=== PATIENT | male | born 1945 | race Two or more races ===

== ENCOUNTER 2025-02-08 03:09 | Inpatient (IN) | payer OTHER ==
[~2025-02-08] VITALS: Ht 177.8 cm; Wt 96.3 kg
--- NOTE | 2025-02-08 03:32 | ED.PDOC ---
History of Present Illness HPI Comments 80 y/o M is BIBA for allergic reaction, characterized by generalized facial swelling, shortness of breath, and wheezing. Symptoms are reported to have started around 0200, this morning. Patient endorses on no prior history of having any known allergen in the past and trying a "new" protein bar at around [id number], last night. Denies any chest pain, cough, throat irritation, numbness, tingling, or further associated symptoms. En route, patient received 25mg IV Benadryl and 0.3mg Epinephrine, with moderate improvement. 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, Treatment Past Medical History PAST MEDICAL HISTORY: Cancer (prostate cancer ), HTN Surgical History: CABG All Other Systems: Reviewed and Negative (Comprehensive systems review obtained and negative except for what is stated in the HPI.) Physical Exam General Appearance: No Apparent Distress, Normal HEENT: Pharynx Normal, TMs Normal, Other (edema to the lower lip and bilateral periorbital area; tongue does not appear to be swollen; otherwise, normal HEENT inspection ) Neck: Full Range of Motion, Non-Tender, Normal, Normal Inspection Respiratory: Chest Non-Tender, Lungs Clear, No Accessory Muscle Use, No Respiratory Distress, Normal Breath Sounds Cardiovascular: No Edema, No JVD, No Murmur, No Gallop, Normal Peripheral Pulses, Regular Rate/Rhythm Breast Exam: Deferred Gastrointestinal: No Organomegaly, Non Tender, No Pulsatile Mass, Normal Bowel Sounds, Soft Genitalia: Deferred Pelvic: Deferred Rectal: Deferred Extremities: No calf tenderness, Normal capillary refill, Normal inspection, Normal range of motion, Non-tender, No pedal edema Musculoskeletal : Apperance: Normal Neurologic: Alert, fishing tool supervisor II-XII nml as Tested, No Motor Deficits, Normal Affect, Normal Mood, No Sensory Deficits Cerebellar Function: Normal Reflexes: Normal Skin: Dry, Normal Color, Warm Lymphatic: No Adenopathy Was a procedure done? Was a procedure done?: No Differential Dx Considerations may include: anaphylaxis, angioedema, exposure to unknown new allergen, among others X-Ray, Labs, Meds, VS Vital Signs Date Time Temp Pulse Resp B/P (MAP) Pulse Ox O2 Delivery O2 Flow Rate FiO2 02/08/25 04:27 60 02/08/25 03:45 65 16 96 Room Air* 0 21 02/08/25 03:45 98.0 64 16 130/78 (95) 95 98.0 02/08/25 03:12 16 97 Nasal Cannula* 3 32 02/08/25 03:12 98.4 77 16 168/75 (106) 97 98.4 Lab Test 02/08/25 04:07 Range/Units White Blood Count 5.5 4.4-10.8 10^3/uL Red Blood Count 5.49 4.5-5.90 10^6/uL Hemoglobin 15.7 13.5-17.5 g/dL Hematocrit 46.7 41.0-53.0 % Mean Corpuscular Volume 85.1 80.0-100.0 fL Mean Corpuscular Hemoglobin 28.6 28.0-32.0 pg Mean Corpuscular Hemoglobin Concent 33.6 32.0-36.0 g/dL Red Cell Distribution Width 16.2 H 11.8-14.3 % Platelet Count 130 L 140-450 10^3/uL Mean Platelet Volume 7.7 6.9-10.8 fL Neutrophils (%) (Auto) 75.5 37.0-80.0 % Lymphocytes (%) (Auto) 16.4 10.0-50.0 % Monocytes (%) (Auto) 6.2 0.0-12.0 % Eosinophils (%) (Auto) 1.4 0.0-7.0 % Basophils (%) (Auto) 0.5 0.0-2.0 % Neutrophils # (Auto) 4.2 1.6-8.6 10 ^3/uL Lymphocytes # (Auto) 0.9 0.4-5.4 10 ^3/uL Monocytes # (Auto) 0.3 0-1.3 10 ^3/uL Eosinophils # (Auto) 0.1 0-0.8 10 ^3/uL Basophils # (Auto) 0 0-0.2 10 ^3/uL Nucleated Red Blood Cells 0.1 % Sodium Level 136 136-145 mmol/L Potassium Level 3.4 L 3.5-5.1 mmol/L Chloride Level 101 98-107 mmol/L Carbon Dioxide Level 27 20-31 mmol/L Anion Gap 8 5-15 Blood Urea Nitrogen 24 H 9-23 mg/dL Creatinine 1.44 H 0.700-1.30 mg/dL Glomerular Filtration Rate Calc 49 >90 mL/min BUN/Creatinine Ratio 16.7 10.0-20.0 Serum Glucose 206 H 74-106 mg/dL Calcium Level 9.4 8.7-10.4 mg/dL Total Bilirubin 0.7 0.2-1.0 mg/dL Aspartate Amino Transferase (AST) 14 13-40 U/L Alanine Aminotransferase (ALT) 15 7-40 U/L Alkaline Phosphatase 58 46-116 U/L Troponin I High Sensitivity 9 </=54 ng/L Total Protein 6.3 5.7-8.2 g/dL Albumin 4.0 3.2-4.8 g/dL Current Medications Medications (Trade) Dose Ordered Sig/Shai Route Start Time Stop Time Status Last Admin Diphenhydramine HCl (Benadryl Injection) 25 mg ONCE ONCE IV 02/08/25 04:15 02/08/25 04:16 DC 02/08/25 04:14 Famotidine (Pepcid Injection) 20 mg ONCE ONCE IV 02/08/25 04:15 02/08/25 04:16 DC 02/08/25 04:14 Methylprednisolone Sodium Succinate (Solu Medrol) 40 mg ONCE ONCE IV 02/08/25 04:15 02/08/25 04:16 DC 02/08/25 04:14 Time of 1ST Reevaluation: 03:48 Reevaluation 1ST: Unchanged Patient Education/Counseling: Diagnosis, Treatment Family Education/Counseling: No Family Present Departure 1 Departure Time of Disposition: 04:59 Impression: Primary Impression: Angioedema Additional Impressions: Allergic reaction Acute renal injury Type 2 diabetes mellitus with hyperglycemia Disposition: 09 ADMITTED INPATIENT Admit to: Tele Condition: Guarded Discharged With: Self Critical Care Note Critical Care Time?: Yes (35 min-critical care time only) Critical care comment: Total critical care time: Approximately 36 minutes Due to a high probability of clinically significant, life threatening deterioration, the patient required my highest level of preparedness to intervene emergently and I personally spent this critical care time directly and personally managing the patient. This critical care time included obtaining a history; examining the patient; pulse oximetry; ordering and review of studies; arranging urgent treatment with development of a management plan; evaluation of patient's response to treatment; frequent reassessment; and, discussions with other providers. This critical care time was performed to assess and manage the high probability of imminent, life-threatening deterioration that could result in multi-organ failure. It was exclusive of separately billable procedures and treating other patients. Stability Stability form required: No Heart Score Heart Score: Heart Score Response (Comments) Value History N/A 0 EKG N/A 0 Age N/A 0 Risk Factors N/A 0 Troponin N/A 0 Total 0 I personally scribed for MADYSON CALDERA MD ([email or web address]) on 02/08/25 at 03:32. Electronically submitted by Timothy Brunner [email or web address]). MADYSON CALDERA MD February 08, 2025 03:32
[2025-02-08 03:45] VITALS: PULSE 65; RESP 16; O2SAT 96
[2025-02-08] MEDS: methylPREDNISolone SOD SUCC 40 MG/ML VL IV ONE (04:14)
[2025-02-08] MEDS: FAMOTIDINE (10MG/ML) 2ML VL IV ONE (04:14)
[2025-02-08] MEDS: diphenhdrAMINE HCL 50 MG/1 ML VL IV ONE (04:14)
[2025-02-08 04:28] LABS: Basophils # (auto) 0 10 ^3/uL (0-0.2); Basophils % (auto) 0.5 % (0.0-2.0); Eosinophils # (auto) 0.1 10 ^3/uL (0-0.8); Eosinophils % (auto) 1.4 % (0.0-7.0); Hematocrit 46.7 % (41.0-53.0); Hemoglobin 15.7 g/dL (13.5-17.5); Lymphocytes # (auto) 0.9 10 ^3/uL (0.4-5.4); Lymphocytes % (auto) 16.4 % (10.0-50.0); Mean Corpuscular Hemoglobin 28.6 pg (28.0-32.0); Mean Corpuscular Hgb Conc. 33.6 g/dL (32.0-36.0); Mean Corpuscular Volume 85.1 fL (80.0-100.0); Monocytes # (auto) 0.3 10 ^3/uL (0-1.3); Monocytes % (auto) 6.2 % (0.0-12.0); Neutrophils # (auto) 4.2 10 ^3/uL (1.6-8.6); Neutrophils % (auto) 75.5 % (37.0-80.0); Nucleated Red Blood Cells % 0.1 %; Platelet Count (auto) 130 10^3/uL (140-450); Red Blood Cells 5.49 10^6/uL (4.5-5.90); Red Cell Distribution Width 16.2 % (11.8-14.3); White Blood Cell 5.5 10^3/uL (4.4-10.8)
[2025-02-08 04:40] LABS: Alanine Aminotransferase 15 U/L (7-40); Alkaline Phosphatase 58 U/L (46-116); Anion Gap 8 (5-15); Aspartate Aminotransferase 14 U/L (13-40); BUN/Creatinine Ratio 16.7 (10.0-20.0); Calcium 9.4 mg/dL (8.7-10.4); Carbon Dioxide 27 mmol/L (20-31); Chloride 101 mmol/L (98-107); Sodium 136 mmol/L (136-145); Total Protein 6.3 g/dL (5.7-8.2)
[2025-02-08 04:41] LABS: Bilirubin, Total 0.7 mg/dL (0.2-1.0)
[2025-02-08 04:42] LABS: Blood Urea Nitrogen 24 mg/dL (9-23); Glucose 206 mg/dL (74-106); Potassium 3.4 mmol/L (3.5-5.1)
[2025-02-08] MEDS: SODIUM CHLORIDE 0.9% 500 ML IV ONE (05:13)
--- NOTE | 2025-02-08 07:04 | ECG ---
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
[2025-02-08] MEDS ORDERED: LISINOPRIL 20 MG TAB PO SCH (07:30)
[2025-02-08] MEDS: amLODIPine BESYLATE 5 MG TAB PO ONE (08:10)
[2025-02-08] MEDS ORDERED: MORPHINE SULFATE INJ 2 MG/ml SYRG IV PRN (10:30)
[2025-02-08] MEDS ORDERED: NITROGLYCERIN 0.4 MG SL TAB SL PRN (10:30)
[2025-02-08] MEDS ORDERED: DOCUSATE SOD 100 MG CAP PO PRN (10:30)
[2025-02-08] MEDS ORDERED: HYDROcodone-ACET 5/325MG TAB PO PRN (10:30)
[2025-02-08] MEDS ORDERED: ACETAMINOPHEN 325 MG TAB PO PRN (10:30)
[2025-02-08] MEDS ORDERED: ONDANSETRON HCL 4 MG/2 ML VIAL IV PRN (10:30)
[2025-02-08] MEDS ORDERED: GLIP5TAB21 PO (10:33)
[2025-02-08] MEDS ORDERED: GLIP10TA9 PO (10:33)
[2025-02-08] MEDS ORDERED: METF-771 PO (10:33)
[2025-02-08] MEDS ORDERED: ROSU20TA56 PO (10:33)
[2025-02-08] MEDS ORDERED: EMPA1TAB PO (10:33)
[2025-02-08] MEDS ORDERED: ASPI81CH49 PO (10:33)
[2025-02-08] MEDS ORDERED: TAMS0.4C39 PO (10:33)
[2025-02-08] MEDS ORDERED: LISI20TA56 PO (10:33)
[2025-02-08] MEDS ORDERED: [UNRECOGNIZED DRUG - CODE] SC (10:37)
[2025-02-08] MEDS ORDERED: DEXTROSE (50%) 50ML SYRG IV PRN (10:45)
--- NOTE | 2025-02-08 10:55 | DVHHP2 ---
History of Present Illness Reason for Visit: Allergic response History of Present Illness Santiago Franco is an 80-year-old male with past medical history of hypertension, diabetes, hyperlipidemia, coronary artery disease, and prostate cancer, came to the hospital for allergic response. [facility], and he states he ate a protein bar around [id number] last night and woke up around 0200 with his face and arm itching. He noticed that his throat was itching and he was having difficulty breathing. He then went to the bathroom and saw that his face and tongue was swollen. On arrival to ER he was given IV Benadryl, IV steroids, and IV Pepcid. His swelling decreased and his breathing improved, but the swelling did not completely go away. Cardiovascular: CAD, HTN, hyperipidemia Heme/Onc: Cancer (prostate) Endocrine: Diabetes Past Surgical History: CABG (December 2023), Hernia Repair, Other (Prostate, right hip and pelvis surgery, pituitary surgery 1999, ) Review of Systems Constitutional: No: Fever, Chills, Sweats, Weakness, Malaise, Other Eyes: No: Pain, Vision change, Conjunctivae inflammation, Eyelid inflammation, Other, Redness ENT: Mouth swelling, Throat swelling, Other (tongue and facital swelling); No: Ear pain, Ear discharge, Nose pain, Nose discharge, Nose congestion, Mouth pain, Throat pain Respiratory: No: Cough, Dry, Shortness of breath, SOB with excertion, Wheezing, Hemoptysis, Pleuritic Pain, Sputum, Wheezing, Other Cardiovascular: No: Chest Pain, Palpitations, Orthopnea, Paroxysmal Noc. Dyspnea, Edema, Lt Headedness, Other Gastrointestinal: No: Nausea, Vomiting, Abdominal Pain, Diarrhea, Constipation, Melena, Hematochezia, Other Genitourinary: No Dysuria, No Frequency, No Incontinence, No Hematuria, No Retention, No Other Musculoskeletal: No: other, neck pain, shoulder pain, arm pain, back pain, hand pain, leg pain, foot pain Skin: No: Rash, Lesions, Jaundice, Bruising, Other Neurological: No: Weakness, Numbness, Incoordination, Change in speech, Confusion, Seizures, Other Allergies: Coded Allergies: JENNIFER Inhibitors (Verified Allergy, Severe, 02/08/25) ANGIOEDEMA Medications Current Medications Medications Dose Ordered Sig/Shai Route Start Time Stop Time Status Last Admin Dose Admin Acetaminophen/ Hydrocodone Bitart 1 tab Q4HP PRN PO 02/08/25 10:30 UNV Ondansetron HCl 4 mg Q4HP PRN IV 02/08/25 10:30 UNV Docusate Sodium 100 mg BIDPRN PRN PO 02/08/25 10:30 UNV Acetaminophen 650 mg Q6HP PRN PO 02/08/25 10:30 UNV Nitroglycerin 0.4 mg Q5MINP PRN SL 02/08/25 10:30 UNV Morphine Sulfate 2 mg Q30M PRN IV 02/08/25 10:30 UNV Methylprednisolone Sodium Succinate 40 mg BID IV 02/08/25 22:00 UNV Famotidine 20 mg Q12HR IV 02/08/25 22:00 UNV Diphenhydramine HCl 25 mg Q4HP PRN IV 02/08/25 10:30 UNV Diagnostic Test (Pha) 1 strip ACHS 02/08/25 11:30 UNV Insulin Human Regular HS SC 02/08/25 22:00 UNV Insulin Human Regular AC SC 02/08/25 11:30 UNV Dextrose 50 ml UD PRN IV 02/08/25 10:45 UNV Empaglifozin 10 mg DAILY PO 02/09/25 10:00 UNV Glipizide 5 mg DAILY PO 02/09/25 10:00 UNV Tamsulosin HCl 0.4 mg DAILY PO 02/09/25 10:00 UNV Patient Own Medication 81 mg DAILY PO 02/09/25 10:00 UNV Patient Own Medication 1 tab HS PO 02/08/25 22:00 UNV Patient Own Medication 20 mg HS PO 02/08/25 22:00 UNV Patient Own Medication 20 mg DAILY SC 02/09/25 10:00 UNV Exam Vital Signs Vital Signs Date Time Temp Pulse Resp B/P (MAP) Pulse Ox O2 Delivery O2 Flow Rate FiO2 02/08/25 08:10 142/76 02/08/25 07:48 97.3 70 16 93 97.3 02/08/25 07:48 Room Air* 0 21 General Appearance: Alert, Oriented X3, Cooperative, mild distress HEENT: Atraumatic, PERRLA Respiratory: Clear to auscultation, Normal air movement Cardiovascular: Regular rate, Normal S1, Normal S2 Abdominal: Normal bowel sounds, Soft, No tenderness, No hepatospenomegaly Extremities: No clubbing, No cyanosis, No edema, Normal pulses, No tenderness/swelling Skin: No rashes, No breakdown, No significant lesion Neuro: Normal gait, Normal speech, Strength at 5/5 X4 ext Psych/Mental Status: Mental status NL, Mood NL Labs/Xrays Labs Test 02/08/25 05:14 02/08/25 04:07 Range/Units Troponin I High Sensitivity 8 </=54 ng/L White Blood Count 5.5 4.4-10.8 10^3/uL Red Blood Count 5.49 4.5-5.90 10^6/uL Hemoglobin 15.7 13.5-17.5 g/dL Hematocrit 46.7 41.0-53.0 % Mean Corpuscular Volume 85.1 80.0-100.0 fL Mean Corpuscular Hemoglobin 28.6 28.0-32.0 pg Mean Corpuscular Hemoglobin Concent 33.6 32.0-36.0 g/dL Red Cell Distribution Width 16.2 H 11.8-14.3 % Platelet Count 130 L 140-450 10^3/uL Mean Platelet Volume 7.7 6.9-10.8 fL Neutrophils (%) (Auto) 75.5 37.0-80.0 % Lymphocytes (%) (Auto) 16.4 10.0-50.0 % Monocytes (%) (Auto) 6.2 0.0-12.0 % Eosinophils (%) (Auto) 1.4 0.0-7.0 % Basophils (%) (Auto) 0.5 0.0-2.0 % Neutrophils # (Auto) 4.2 1.6-8.6 10 ^3/uL Lymphocytes # (Auto) 0.9 0.4-5.4 10 ^3/uL Monocytes # (Auto) 0.3 0-1.3 10 ^3/uL Eosinophils # (Auto) 0.1 0-0.8 10 ^3/uL Basophils # (Auto) 0 0-0.2 10 ^3/uL Nucleated Red Blood Cells 0.1 % Sodium Level 136 136-145 mmol/L Potassium Level 3.4 L 3.5-5.1 mmol/L Chloride Level 101 98-107 mmol/L Carbon Dioxide Level 27 20-31 mmol/L Anion Gap 8 5-15 Blood Urea Nitrogen 24 H 9-23 mg/dL Creatinine 1.44 H 0.700-1.30 mg/dL Glomerular Filtration Rate Calc 49 >90 mL/min BUN/Creatinine Ratio 16.7 10.0-20.0 Serum Glucose 206 H 74-106 mg/dL Calcium Level 9.4 8.7-10.4 mg/dL Total Bilirubin 0.7 0.2-1.0 mg/dL Aspartate Amino Transferase (AST) 14 13-40 U/L Alanine Aminotransferase (ALT) 15 7-40 U/L Alkaline Phosphatase 58 46-116 U/L Total Protein 6.3 5.7-8.2 g/dL Albumin 4.0 3.2-4.8 g/dL Assessment/Plan Assessment/Plan Assessment: Angioedema, Hyperglycemia, Hypokalemia, Hyperlipidemia, Hypertension, Diabetes, Plan: Admit to Tele, IV hydration, IV steroids, IV Pepcid, PRN Benadryl, Manage/Monitor electrolytes, Accu checks Q AC&HS with sliding scale, Home medications reconciled, Plan discussed with: Patient, Spouse My Orders Orders - AMBER SORENSON Procedure Category Date Status Time Admit ADMIT 02/08/25 Transmitted 10:24 Code Status CODE 02/08/25 Transmitted 10:24 Hydrocodone-Acet PHA 02/08/25 Logged 5/325mg Tab (Union 10:30 Ondansetron Hcl PHA 02/08/25 Logged (Zofran) 10:30 Docusate Sodium PHA 02/08/25 Logged Capsule (Colace 10:30 Complete Blood Count LAB 02/09/25 Verified 04:00 Comprehensive LAB 02/09/25 Verified Metabolic Panel 04:00 Cardiac DIET 02/08/25 Transmitted Diet-2gna,Lofat,Lochol Lunch Condition: Serious CHECO 02/08/25 In Process 10:24 Acetaminophen Tablet PHA 02/08/25 Logged (Tylenol Tablet) 10:30 Nitroglycerin PHA 02/08/25 Logged Sublingual (Ntrostat 10:30 Morphine Sulfate PHA 02/08/25 Logged Injection 10:30 Stat Ekg For Chest CHECO 02/08/25 In Process Pain 10:24 Notify Of Changes CHECO 02/08/25 In Process From Base 10:24 Correctional Corporal For CHECO 02/08/25 In Process 24 Hours 10:24 Emergency Dysrhythmia CHECO 02/08/25 In Process Protocol 10:24 Rhythm Strips Once [facility] 02/08/25 In Process Every Shift 10:24 Oxygen By Nasal RT 02/08/25 Transmitted Cannula 10:24 Methylprednisolone PHA 02/08/25 Logged Sod Succ (Solu Medrol 22:00 Famotidine Injection PHA 02/08/25 Logged (Pepcid Injection) 22:00 Diphenhdramine PHA 02/08/25 Logged Injection (Benadryl 10:30 Glucose Blood PHA 02/08/25 Logged (Accu-Chek Comfort 11:30 Insulin R (Human) PHA 02/08/25 Logged (Insulin R) 22:00 Insulin R (Human) PHA 02/08/25 Logged (Insulin R) 11:30 Dextrose 50% Syringe PHA 02/08/25 Logged 10:45 Empagliflozin PHA 02/09/25 Logged (Jardiance) 10:00 Glipizide Tablet PHA 02/09/25 Logged (Glucotrol Tablet) 10:00 Tamsulosin PHA 02/09/25 Logged Hydrochloride (Flomax) 10:00 (Nf) Aspirin PHA 02/09/25 Logged 10:00 (Nf) Glipizide PHA 02/08/25 Logged 22:00 (Nf) Rosuvastatin PHA 02/08/25 Logged Calcium 22:00 (Nf) Pegvisomant PHA 02/09/25 Logged (Somavert) 10:00 Date of Service: February 08, 2025 Billing Provider: AMBER SORENSON Common Visit Codes: [id number] INP/OBS CARE (MOD) AMBER SORENSON February 08, 2025 10:55
[2025-02-08] MEDS: SODIUM CHLORIDE 0.9% 1,000 ML IV ONE (11:35)
[2025-02-08] MEDS: InsuLIN REG 1unit/0.01ml Soln (100units/ml) SC SCH ×2 (11:50→22:47)
[2025-02-08] MEDS: ACCU-CHEK COMFORT CURVE STRIP VI SCH (11:50)
[2025-02-08 16:24] VITALS: BP 129/72; PULSE 85; RESP 17; TEMP 97.7; O2SAT 94
[2025-02-08] MEDS: TAMSULOSIN HYDROCHLORIDE 0.4 MG CAP PO SCH (17:28)
[2025-02-08] MEDS: POTASSIUM CHL 20 Meq TABLET PO ONE (19:11)
[2025-02-08 21:00] VITALS: BP 130/69; PULSE 68; RESP 19; TEMP 98.2; O2SAT 95
[2025-02-08 21:20] VITALS: RESP 16; O2SAT 97
[2025-02-08] MEDS ORDERED: glipiZIDE 5 MG TAB PO SCH (22:00)
[2025-02-08] MEDS: FAMOTIDINE (10MG/ML) 2ML VL IV SCH (22:47)
[2025-02-08] MEDS: ATORVASTATIN 20 MG TAB PO SCH (22:47)
[2025-02-08] MEDS: methylPREDNISolone SOD SUCC 40 MG/ML VL IV SCH (22:47)
[2025-02-09 05:00] VITALS: BP 146/81; PULSE 80; RESP 18; TEMP 98.3; O2SAT 97
[2025-02-09 06:48] LABS: Basophils # (auto) 0 10 ^3/uL (0-0.2); Eosinophils # (auto) 0 10 ^3/uL (0-0.8); Lymphocytes # (auto) 0.5 10 ^3/uL (0.4-5.4); Monocytes # (auto) 0.1 10 ^3/uL (0-1.3); Nucleated Red Blood Cells % 0.1 %
[2025-02-09 06:55] LABS: Basophils % (auto) 0.2 % (0.0-2.0); Hematocrit 50.5 % (41.0-53.0); Hemoglobin 17.2 g/dL (13.5-17.5); Lymphocytes % (auto) 8.3 % (10.0-50.0); Mean Corpuscular Hemoglobin 28.5 pg (28.0-32.0); Mean Corpuscular Volume 83.9 fL (80.0-100.0); Monocytes % (auto) 1.9 % (0.0-12.0); Neutrophils # (auto) 5.2 10 ^3/uL (1.6-8.6); Neutrophils % (auto) 89.6 % (37.0-80.0); Platelet Count (auto) 140 10^3/uL (140-450); Red Blood Cells 6.02 10^6/uL (4.5-5.90); Red Cell Distribution Width 15.6 % (11.8-14.3); White Blood Cell 5.8 10^3/uL (4.4-10.8)
[2025-02-09 07:09] LABS: Alanine Aminotransferase 13 U/L (7-40); Alkaline Phosphatase 56 U/L (46-116); Anion Gap 10 (5-15); BUN/Creatinine Ratio 19.5 (10.0-20.0); Blood Urea Nitrogen 23 mg/dL (9-23); Calcium 9.5 mg/dL (8.7-10.4); Carbon Dioxide 24 mmol/L (20-31); Chloride 103 mmol/L (98-107); Sodium 137 mmol/L (136-145)
[2025-02-09 07:10] LABS: Total Protein 6.8 g/dL (5.7-8.2)
[2025-02-09 07:11] LABS: Albumin 4.2 g/dL (3.2-4.8); Bilirubin, Total 0.8 mg/dL (0.2-1.0)
[2025-02-09 07:12] LABS: Aspartate Aminotransferase 8 U/L (13-40); Glucose 265 mg/dL (74-106)
[2025-02-09 08:00] VITALS: PULSE 71; RESP 18; O2SAT 96
[2025-02-09] MEDS: diphenhdrAMINE HCL 50 MG/1 ML VL IV PRN (08:02)
[2025-02-09 09:07] VITALS: BP 140/68; PULSE 77; RESP 18; TEMP 97.6; O2SAT 92
[2025-02-09] MEDS: EMPAGLIFLOZIN 10 MG TAB PO SCH (09:52)
[2025-02-09] MEDS: PEGVISOMANT SC SCH (09:53)
[2025-02-09] MEDS ORDERED: glipiZIDE 5 MG TAB PO SCH (10:00)
[2025-02-09] MEDS: ASPirin 81 mg TAB PO SCH (12:16)
[2025-02-09 13:00] VITALS: BP 137/83; PULSE 70; RESP 19; TEMP 97.9; O2SAT 94
[2025-02-09] MEDS ORDERED: diphenhdrAMINE HCL 50 MG/1 ML VL IV ONE (14:30)
--- NOTE | 2025-02-09 14:36 | DVHDS2 ---
Discharge Summary Date of Admission February 08, 2025 at 10:24 Date of Discharge: February 09, 2025 Labs/Diagnostic Data: Laboratory Results Test 02/09/25 11:42 02/09/25 06:19 02/08/25 05:14 POC Glucose 330 mg/dl (70-106) White Blood Count 5.8 10^3/uL (4.4-10.8) Red Blood Count 6.02 10^6/uL (4.5-5.90) Hemoglobin 17.2 g/dL (13.5-17.5) Hematocrit 50.5 % (41.0-53.0) Mean Corpuscular Volume 83.9 fL (80.0-100.0) Mean Corpuscular Hemoglobin 28.5 pg (28.0-32.0) Mean Corpuscular Hemoglobin Concent 34.0 g/dL (32.0-36.0) Red Cell Distribution Width 15.6 % (11.8-14.3) Platelet Count 140 10^3/uL (140-450) Mean Platelet Volume 8.0 fL (6.9-10.8) Neutrophils (%) (Auto) 89.6 % (37.0-80.0) Lymphocytes (%) (Auto) 8.3 % (10.0-50.0) Monocytes (%) (Auto) 1.9 % (0.0-12.0) Eosinophils (%) (Auto) 0.0 % (0.0-7.0) Basophils (%) (Auto) 0.2 % (0.0-2.0) Neutrophils # (Auto) 5.2 10 ^3/uL (1.6-8.6) Lymphocytes # (Auto) 0.5 10 ^3/uL (0.4-5.4) Monocytes # (Auto) 0.1 10 ^3/uL (0-1.3) Eosinophils # (Auto) 0 10 ^3/uL (0-0.8) Basophils # (Auto) 0 10 ^3/uL (0-0.2) Nucleated Red Blood Cells 0.1 % Sodium Level 137 mmol/L (136-145) Potassium Level 4.0 mmol/L (3.5-5.1) Chloride Level 103 mmol/L (98-107) Carbon Dioxide Level 24 mmol/L (20-31) Anion Gap 10 (5-15) Blood Urea Nitrogen 23 mg/dL (9-23) Creatinine 1.18 mg/dL (0.700-1.30) Glomerular Filtration Rate Calc 62 mL/min (>90) BUN/Creatinine Ratio 19.5 (10.0-20.0) Serum Glucose 265 mg/dL (74-106) Calcium Level 9.5 mg/dL (8.7-10.4) Total Bilirubin 0.8 mg/dL (0.2-1.0) Aspartate Amino Transferase (AST) 8 U/L (13-40) Alanine Aminotransferase (ALT) 13 U/L (7-40) Alkaline Phosphatase 56 U/L (46-116) Total Protein 6.8 g/dL (5.7-8.2) Albumin 4.2 g/dL (3.2-4.8) Troponin I High Sensitivity 8 ng/L (</=54) Other Laboratory Tests 02/09/25 06:19 Brief Hx & Hospital Course: Final diagnoses: Angioedema due to Steve inhibitor lisinopril Hyperglycemia Hypokalemia Hyperlipidemia Hypertension Diabetes 80 year old male has been taking lisinopril for awhile developed swelling and sore throat in the face with itching and difficulty swallowing yesterday He was seen here for angioedema and was admitted and given IV steroids and Benadryl and lisinopril was discontinued He says he is feeling better now He is still has some sore throat otherwise no itching no rash Vital signs are stable Examination shows clear lungs Examination also shows swollen uvula Patient is stable for discharge Discharged home on same home medications except to discontinue lisinopril Follow up with his primary care physician for him to take an Arb inhibitor instead, he says he does not want a prescription for it right now [facility] to [facility] Condition at Discharge: Stable Final Diagnosis/Problems List Angioedema due to Steve inhibitor lisinopril Hyperglycemia Hypokalemia Hyperlipidemia Hypertension Diabetes Discharge Disposition: Home SNF Discharge Will this Physician continue t: No Discharge Statement: "Patient was advised to return to the ER or call 911 if any headaches, dizziness, shortness of breath, chest pain, abdominal pain, bleeding, fevers, or worsening of medical condition. Patient was counseled about treatment plan, medications, possible side effects, patient�verbalized understanding. All questions were answered to the best of my ability. This discharge took greater then 30 minutes in planning, reviewing documentation, counseling the patient, and discussing with other team members." ASSESSMENT ASSESSMENT Assessment Date of Service: February 09, 2025 Billing Provider: KERRI PAGE MD Common Visit Codes: [id number] DISCH DAY >30min KERRI PAGE MD February 09, 2025 14:36
[2025-02-09 15:17] VITALS: BP 142/76
[2025-02-09] MEDS ORDERED: LOSA-534 PO (16:48)
== END 2025-02-09 16:02 | disposition home or self-care (01) | DRG 916 ==
LOC: ER 03:09 → EDBD 03:09 → OVERFLOW 10:24 → TELE-CENTR 21:19
PROVIDERS: ADMIT Internal Medicine Geriatric Medicine; ATTEND Internal Medicine Geriatric Medicine
DX: T78.3XXA Angioneurotic edema, initial encounter (principal); N17.9 Acute kidney failure, unspecified; E11.65 Type 2 diabetes mellitus with hyperglycemia; E78.5 Hyperlipidemia, unspecified; I10 Essential (primary) hypertension; E87.6 Hypokalemia; I25.10 Atherosclerotic heart disease of native coronary artery without angina pectoris; T46.4X5A Adverse effect of angiotensin-converting-enzyme inhibitors, initial encounter; Z85.46 Personal history of malignant neoplasm of prostate; Z95.1 Presence of aortocoronary bypass graft; Z91.010 Allergy to peanuts; Y92.89 Other specified places as the place of occurrence of the external cause
CPT/HCPCS: 36415; 80053; 82962; 84484; 85025; 93005; 99291; G0378; J1815; J3490